=== PATIENT | male | born 1960 | race Caucasian/White ===

== ENCOUNTER → 2019-07-27 | Outpatient (CLI) | payer OTHER | LOC: SJCVCIMAG 10:17 | DX: I10 Essential (primary) hypertension (principal); E78.5 Hyperlipidemia, unspecified ==

== ENCOUNTER → 2020-11-21 | Outpatient (CLI) | payer OTHER | LOC: RAD 10:22 | PROVIDERS: ATTEND Orthopaedic Surgery | DX: M16.0 Bilateral primary osteoarthritis of hip (principal) ==

== ENCOUNTER → 2020-11-29 | Outpatient (CLI) | payer OTHER ==
--- NOTE | 2020-11-29 10:12 | 2DMMODE ---
[facility] [address] [place] [address] 2 D/M-MODE ECHOCARDIOGRAM Name: SANTY COCHRAN Room #: REG [facility].#: [id number] Admission: 11/29/20 Attend Phys: Ovi Ovalle MD Discharge: Date of : 64 Report #: [id number] THIS REPORT FOR: cc: FAM - Family physician unknown FAM - Family physician unknown Thor Delong MD ~ APPROVED REPORT Study performed: 11/29/2020 08:25:07 EXAM: Comprehensive 2D, Doppler, and color-flow Echocardiogram Patient Location: Out-Patient Status: routine BSA: 2.15 HR: 57 bpm BP: 124/84 mmHg Rhythm: NSR Other Information Study Quality: Good Indications History of MD, stent. 2D Dimensions RVDd: 32.13 mm IVSd: 11.22 (7-11mm) LVOT Diam: 22.35 (18-24mm) LVDd: 54.17 mm PWd: 11.23 (7-11mm) Ascending Ao: 30.64 (22-36mm) LVDs: 33.22 (25-40mm) Left Atrium: 42.54 (27-40mm) Aortic Root: 37.17 mm Volumes Left Atrial Volume (Systole) Single Plane 4CH: 76.23 mL Single Plane 2CH: 64.30 mL LA ESV Index: 35.00 mL/m2 Aortic Valve AoV Peak Kleber.: 1.16 m/s AO Peak Gr.: 5.41 mmHg LVOT Max P.77 mmHg LVOT Max V: 0.97 m/s CORAL Vmax: 3.27 cm2 [facility] [email or web address] [address] 2 D/M-MODE ECHOCARDIOGRAM Name: SANTY COCHRAN Room #: REG [facility]#: [id number] Admission: 11/29/20 Attend Phys: Ovi Ovalle MD Discharge: Date of : 64 Report #: [id number] Mitral Valve E/A Ratio: 1.3 MV Decel. Time: 245.05 ms MV E Max Kleber.: 0.66 m/s MV A Kleber.: 0.50 m/s MV PHT: 71.06 ms IVRT: 78.43 ms Pulmonary Valve PV Peak Kleber.: 0.84 m/s PV Peak Gr.: 2.85 mmHg Pulmonary Vein P Vein S: 0.58 m/s P Vein A: 0.34 m/s P Vein D: 0.49 m/s P Vein A Dur.: 87.7 msec P Vein S/D Ratio: 1.18 Tricuspid Valve RAP Estimate: 5.00 mmHg Left Ventricle The left ventricle is normal size. There is normal LV segmental wall motion. There is normal left ventricular wall thickness. Left ventricular systolic function is normal. LVEF is 55-60%. The left ventricular diastolic function is normal. Right Ventricle The right ventricle is normal size. The right ventricular systolic function is normal. Atria Left atrium is borderline dilated. The right atrium size is normal. Aortic Valve The aortic valve is normal in structure. No aortic regurgitation is present. There is no aortic valvular stenosis. Mitral Valve The mitral valve is normal in structure. Mild mitral regurgitation. Tricuspid Valve The tricuspid valve is normal in structure. There is no tricuspid valve regurgitation noted. Unable to assess PA pressure. [facility] [address] [place] [address] 2 D/M-MODE ECHOCARDIOGRAM Name: SANTY COCHRAN Room #: REG Claudia#: [id number] Admission: 11/29/20 Attend Phys: Ovi Ovalle MD Discharge: Date of : 64 Report #: [id number] Pulmonic Valve The pulmonary valve is normal in structure. Trace pulmonic regurgitation. Great Vessels The aortic root is normal in size. The ascending aorta is normal in size. IVC is normal in size and collapses >50% with inspiration. Pericardium There is no pericardial effusion. <Conclusion> The left ventricle is normal size. Left ventricular systolic function is normal. LVEF is 55-60%. Left atrium is borderline dilated. The aortic valve is normal in structure. The mitral valve is normal in structure. Mild mitral regurgitation. The tricuspid valve is normal in structure. The pulmonary valve is normal in structure. Trace pulmonic regurgitation. There is no pericardial effusion. <ELECTRONICALLY SIGNED> By: Thor Delong MD 11/29/20 1011 1011 1011 Thor Delong MD /INF
== END ==
LOC: CV 09:09
PROVIDERS: ATTEND Orthopaedic Surgery
DX: I34.0 Nonrheumatic mitral (valve) insufficiency (principal); I25.10 Atherosclerotic heart disease of native coronary artery without angina pectoris; R55 Syncope and collapse

== ENCOUNTER → 2021-02-05 | Outpatient (CLI) | payer OTHER | LOC: SJCVCIMAG 07:23 | PROVIDERS: ATTEND Internal Medicine Cardiovascular Disease | DX: I25.10 Atherosclerotic heart disease of native coronary artery without angina pectoris (principal); R06.00 Dyspnea, unspecified; R53.83 Other fatigue; E78.5 Hyperlipidemia, unspecified; I10 Essential (primary) hypertension; Z98.61 Coronary angioplasty status; Z79.899 Other long term (current) drug therapy ==